=== PATIENT | male | born 1995 | race Caucasian/White ===

== ENCOUNTER → 2017-07-06 | Outpatient (CLI) | payer OTHER ==
[~2017-07-06] MED LIST: ADVIL CONGESTION; ALAVERT10 M1; ALBUTEROL0.09 MG/A2 IH; ATARAX,VISTARIL50 MG PO; BACTROBAN OINT22 GM PO; CIPRODEX 0.3%-7.5 ML OT; CLARITIN10 MG PO; CLINDAMYCIN150 MG PO; ELIMITE 5%60 GM T; FLONASE0.05 MG/AC NS; KEFLEX500 MG PO; MOTRIN800 MG PO; PREDNISONE20 M1 PO; ZITHROMAX Z PA250 MG PO; ZITHROMAX250 MG
== END | disposition home or self-care (01) ==
LOC: RAD 16:41
DX: M54.5 Low back pain (principal)

== ENCOUNTER 2018-06-25 15:04 | Emergency (ER) | payer OTHER ==
[~2018-06-25] VITALS: Ht 190.5 cm; Wt 126.1 kg
[2018-06-25 15:39] LABS: BASO % 0.2 % (0.0-1.0); EOS # 0.1 10*3/uL (0.0-0.4); HEMATOCRIT 43.1 % (42.0-52.0); HEMOGLOBIN 14.3 g/dl (14.0-18.0); LYMPH # 1.5 10*3/uL (1.3-4.4); MEAN CELL VOLUME 82.9 fl (80.0-94.0); MEAN CORPUSCULAR HGB 27.5 pg (27.0-31.0); MEAN CORPUSCULAR HGB CONC 33.2 g/dl (33.0-37.0); MEAN PLATELET VOLUME 9.3 fl (9.6-12.3); MONO # 0.7 10*3/uL (0.1-1.0); MONO % 7.2 % (3.0-9.0); NEUT # 6.7 10*3/uL (2.3-7.9); NEUT % 74.4 % (47.0-73.0); PLATELET COUNT AUTOMATED 226 10*3/uL (130-400); RED CELL DISTRI WIDTH 11.8 % (0-14.5); WHITE BLOOD COUNT 9.1 10*3/uL (4.8-10.8)
[2018-06-25 15:55] LABS: ALBUMIN 4.1 gm/dl (3.1-4.5); ALKALINE PHOSPHATASE 106 U/L (45-117); BUN 13 mg/dl (7-24); CHLORIDE 101 mmol/L (98-107); CREATININE 0.72 mg/dL (0.70-1.30); LIPASE 120 U/L (73-393); POTASSIUM 4.3 mmol/L (3.5-5.1); SGOT/AST 23 IU/L (3-35); SGPT/ALT 42 U/L (12-78); SODIUM 137 mmol/L (136-145); TOTAL PROTEIN 8.4 gm/dL (6.4-8.2)
[2018-06-25] MEDS ORDERED: ZOFRAN4 MG PO (16:10)
== END 2018-06-25 17:28 ==
LOC: ED 15:04
PROVIDERS: Nurse Practitioner Family
DX: R10.13 Epigastric pain (principal); R11.0 Nausea; R10.11 Right upper quadrant pain; R03.0 Elevated blood-pressure reading, without diagnosis of hypertension; Z88.1 Allergy status to other antibiotic agents; Z88.0 Allergy status to penicillin

== ENCOUNTER → 2020-06-25 | Outpatient (CLI) | payer OTHER ==
[~2020-06-25] MED LIST changes: +ZOFRAN4 MG PO
[2020-06-25 15:44] LABS: ALBUMIN 4.1 gm/dl (3.1-4.5); ALKALINE PHOSPHATASE 92 U/L (45-117); BUN 13 mg/dl (7-24); CHLORIDE 105 mmol/L (98-107); CREATININE 0.83 mg/dL (0.70-1.30); POTASSIUM 3.6 mmol/L (3.5-5.1); SGOT/AST 16 IU/L (3-35); SGPT/ALT 39 U/L (12-78); SODIUM 139 mmol/L (136-145); TOTAL PROTEIN 8.1 gm/dL (6.4-8.2)
[2020-06-25 15:52] LABS: BILIRUBIN NEGATIVE; BLOOD NEGATIVE (NEGATIVE); CLARITY CLEAR (CLEAR); COLOR YELLOW (YELLOW); GLUCOSE NEGATIVE; KETONE NEGATIVE; LEUKO ESTERASE NEGATIVE (NEGATIVE); NITRITE NEGATIVE (NEGATIVE); PH 6.5 (4.5-8.0); SPECIFIC GRAVITY 1.015 (1.001-1.030); UROBILINOGEN 0.2 E.U./dl (0.0-1.0)
[2020-06-25 15:54] LABS: BACTERIA TRACE; EPITHELIAL CELLS 0-2; MUCOUS TRACE; RBC 0-2 rbc/hpf (0-2); WBC 0-2 wbc/hpf (0-5)
== END | disposition home or self-care (01) ==
LOC: LAB 14:37
PROVIDERS: ATTEND Nurse Practitioner
DX: R30.0 Dysuria (principal)

== ENCOUNTER 2021-03-19 18:44 | Emergency (ER) | payer SELFPAY ==
[~2021-03-19] VITALS: Ht 193 cm; Wt 131.5 kg
== END 2021-03-19 19:46 | disposition home or self-care (01) ==
LOC: ED 18:44
DX: R21 Rash and other nonspecific skin eruption (principal); T50.B95A Adverse effect of other viral vaccines, initial encounter; Z88.0 Allergy status to penicillin; Z88.8 Allergy status to other drugs, medicaments and biological substances; Y92.89 Other specified places as the place of occurrence of the external cause

== ENCOUNTER 2021-05-05 18:51 | Emergency (ER) | payer OTHER ==
[~2021-05-05] VITALS: Wt 129.3 kg
[2021-05-05] MEDS ORDERED: METHOCARBAMOL750 M1 PO (19:58)
[2021-05-05] MEDS ORDERED: NAPROSYN500 MG PO (19:58)
== END 2021-05-05 20:25 | disposition home or self-care (01) ==
LOC: ED 18:51
DX: S39.011A Strain of muscle, fascia and tendon of abdomen, initial encounter (principal); M25.552 Pain in left hip; Z88.0 Allergy status to penicillin; Z88.1 Allergy status to other antibiotic agents; Z79.2 Long term (current) use of antibiotics; Z79.899 Other long term (current) drug therapy; W18.43XA Slipping, tripping and stumbling without falling due to stepping from one level to another, initial encounter; Y93.01 Activity, walking, marching and hiking; Y92.89 Other specified places as the place of occurrence of the external cause; Y99.0 Civilian activity done for income or pay

== ENCOUNTER → 2021-08-17 | Outpatient (CLI) | payer OTHER ==
[~2021-08-17] MED LIST changes: +METHOCARBAMOL750 M1 PO; +NAPROSYN500 MG PO
== END | disposition home or self-care (01) ==
LOC: RAD 12:37
PROVIDERS: ATTEND Family Medicine
DX: M87.852 Other osteonecrosis, left femur (principal); M25.551 Pain in right hip; M25.552 Pain in left hip

== ENCOUNTER 2021-11-02 20:08 | Emergency (ER) | payer OTHER ==
[~2021-11-02] VITALS: Ht 193 cm; Wt 136.1 kg
[2021-11-02] MEDS ORDERED: BENZONATATE200 MG PO (22:02)
== END 2021-11-02 22:05 | disposition home or self-care (01) ==
LOC: ED 20:08
DX: J40 Bronchitis, not specified as acute or chronic (principal); Z20.822 Contact with and (suspected) exposure to COVID-19; Z88.0 Allergy status to penicillin; Z88.1 Allergy status to other antibiotic agents

== ENCOUNTER 2022-01-12 07:08 | Emergency (ER) | payer OTHER ==
[~2022-01-12] VITALS: Wt 141.5 kg
[~2022-01-12 07:08] MED LIST changes: +BENZONATATE200 MG PO
[2022-01-12] MEDS ORDERED: VIBRA-TAB100 MG PO (07:34)
== END 2022-01-12 07:33 | disposition home or self-care (01) ==
LOC: ED 07:08
DX: J32.0 Chronic maxillary sinusitis (principal); Z88.0 Allergy status to penicillin; Z88.1 Allergy status to other antibiotic agents; Z79.899 Other long term (current) drug therapy

== ENCOUNTER 2022-03-24 12:00 | Emergency (ER) | payer OTHER ==
[~2022-03-24] VITALS: Ht 193 cm; Wt 142.9 kg
[~2022-03-24 12:00] MED LIST changes: +VIBRA-TAB100 MG PO
[2022-03-24 12:45] LABS: BASO % 0.6 % (0.0-1.0); EOS % 0.3 % (1.0-4.0); HEMATOCRIT 44.1 % (42.0-52.0); LYMPH % 28.4 % (27.0-41.0); MEAN CELL VOLUME 82.3 fl (80.0-94.0); MEAN CORPUSCULAR HGB 27.8 pg (27.0-31.0); MEAN CORPUSCULAR HGB CONC 33.8 g/dl (33.0-37.0); MEAN PLATELET VOLUME 9.4 fl (9.6-12.3); MONO # 0.4 10*3/uL (0.1-1.0); NEUT # 2.1 10*3/uL (2.3-7.9); NEUT % 60.7 % (47.0-73.0); PLATELET COUNT AUTOMATED 184 10*3/uL (130-400); RED BLOOD COUNT 5.36 10*6/uL (4.50-5.90); WHITE BLOOD COUNT 3.5 10*3/uL (4.8-10.8)
[2022-03-24 13:00] LABS: ALKALINE PHOSPHATASE 89 U/L (45-117); BUN 11 mg/dl (7-24); CHLORIDE 106 mmol/L (98-107); CREATININE 0.78 mg/dL (0.70-1.30); SGOT/AST 38 IU/L (3-35); SGPT/ALT 58 U/L (12-78); SODIUM 134 mmol/L (136-145); TOTAL PROTEIN 8.1 gm/dL (6.4-8.2)
[2022-03-24 13:01] LABS: BILIRUBIN Negative (Negative); BLOOD Negative (Negative); CLARITY Clear (Clear); COLOR Yellow (Yellow); GLUCOSE Negative (Negative); KETONE Negative (Negative); LEUKO ESTERASE Trace (Negative); NITRITE Negative (Negative); PH 7.5 (4.5-8.0); SPECIFIC GRAVITY 1.025 (1.001-1.030)
[2022-03-24 13:21] LABS: BACTERIA TRACE; EPITHELIAL CELLS 21-30
== END 2022-03-24 16:35 | disposition home or self-care (01) ==
LOC: ED 12:00
PROVIDERS: Emergency Medicine
DX: U07.1 COVID-19 (principal); G43.909 Migraine, unspecified, not intractable, without status migrainosus; M79.10 Myalgia, unspecified site; Z88.0 Allergy status to penicillin; Z88.1 Allergy status to other antibiotic agents

== ENCOUNTER 2022-04-12 06:44 | Emergency (ER) | payer OTHER ==
[~2022-04-12] VITALS: Ht 193 cm; Wt 142.9 kg
[2022-04-12] MEDS ORDERED: VIBRAMYCIN100 MG PO (07:42)
== END 2022-04-12 07:54 | disposition home or self-care (01) ==
LOC: ED 06:44
DX: A69.20 Lyme disease, unspecified (principal); F17.200 Nicotine dependence, unspecified, uncomplicated; G43.909 Migraine, unspecified, not intractable, without status migrainosus; Z88.0 Allergy status to penicillin; Z88.1 Allergy status to other antibiotic agents

== ENCOUNTER 2022-08-10 03:41 | Emergency (ER) | payer OTHER ==
[~2022-08-10] VITALS: Ht 193 cm; Wt 142.9 kg
[~2022-08-10 03:41] MED LIST changes: +VIBRAMYCIN100 MG PO
[2022-08-10] MEDS ORDERED: ONDANSETRON4 MG SL (05:27)
== END 2022-08-10 05:37 | disposition home or self-care (01) ==
LOC: ED 03:41
DX: K52.9 Noninfective gastroenteritis and colitis, unspecified (principal); R11.2 Nausea with vomiting, unspecified; Z88.0 Allergy status to penicillin; Z88.1 Allergy status to other antibiotic agents

== ENCOUNTER 2023-09-16 17:30 | Emergency (ER) | payer SELFPAY ==
[~2023-09-16] VITALS: Ht 195.5 cm; Wt 172.4 kg
[~2023-09-16 17:30] MED LIST changes: +ONDANSETRON4 MG SL
[2023-09-16] MEDS ORDERED: AVPAK AZITHROM250 M1 PO (18:43)
== END 2023-09-16 18:46 | disposition home or self-care (01) ==
LOC: ED 17:30
DX: J32.9 Chronic sinusitis, unspecified (principal); Z88.0 Allergy status to penicillin; Z88.1 Allergy status to other antibiotic agents; Z88.8 Allergy status to other drugs, medicaments and biological substances; Z20.822 Contact with and (suspected) exposure to COVID-19

== ENCOUNTER 2024-05-24 09:22 | Emergency (ER) | payer OTHER ==
[~2024-05-24] VITALS: Ht 195.5 cm; Wt 140.2 kg
[~2024-05-24 09:22] MED LIST changes: +AVPAK AZITHROM250 M1 PO
[2024-05-24] MEDS ORDERED: ACETAMINOPHEN 325 MG TAB PO ONE (09:50)
[2024-05-24] MEDS ORDERED: IBUPROFEN 400 MG TAB PO ONE (09:50)
[2024-05-24] MEDS ORDERED: TYLENOL EXTRA500 MG PO (10:27)
[2024-05-24] MEDS ORDERED: Motrin,Rufen400 MG PO (10:27)
== END 2024-05-24 10:36 | disposition home or self-care (01) ==
LOC: ED 09:22
DX: S20.412A Abrasion of left back wall of thorax, initial encounter (principal); S50.312A Abrasion of left elbow, initial encounter; S39.93XA Unspecified injury of pelvis, initial encounter; G43.901 Migraine, unspecified, not intractable, with status migrainosus; Z88.0 Allergy status to penicillin; Z88.1 Allergy status to other antibiotic agents; Z88.8 Allergy status to other drugs, medicaments and biological substances; W17.89XA Other fall from one level to another, initial encounter; Y93.89 Activity, other specified; Y92.89 Other specified places as the place of occurrence of the external cause; Y99.0 Civilian activity done for income or pay

== ENCOUNTER 2024-07-13 14:13 | Emergency (ER) | payer OTHER ==
[~2024-07-13] VITALS: Ht 193 cm; Wt 140.6 kg
[~2024-07-13 14:13] MED LIST changes: +Motrin,Rufen400 MG PO; +TYLENOL EXTRA500 MG PO
== END 2024-07-13 15:00 | disposition home or self-care (01) ==
LOC: ED 14:13
DX: S61.012A Laceration without foreign body of left thumb without damage to nail, initial encounter (principal); Z88.0 Allergy status to penicillin; Z88.1 Allergy status to other antibiotic agents; Z88.8 Allergy status to other drugs, medicaments and biological substances; W26.0XXA Contact with knife, initial encounter; Y93.89 Activity, other specified; Y92.009 Unspecified place in unspecified non-institutional (private) residence as the place of occurrence of the external cause; Y99.8 Other external cause status

== ENCOUNTER 2024-09-24 11:06 | Emergency (ER) | payer OTHER ==
[~2024-09-24] VITALS: Ht 195.5 cm; Wt 141.1 kg
[2024-09-24 11:47] LABS: BASO % 0.5 % (0.0-1.0); EOS # 0.2 10*3/uL (0.0-0.4); EOS % 2.5 % (1.0-4.0); HEMATOCRIT 42.5 % (42.0-52.0); MEAN CELL VOLUME 82.8 fl (80.0-94.0); MEAN CORPUSCULAR HGB 28.3 pg (27.0-31.0); MEAN CORPUSCULAR HGB CONC 34.1 g/dl (33.0-37.0); MEAN PLATELET VOLUME 9.3 fl (9.6-12.3); MONO # 0.4 10*3/uL (0.1-1.0); MONO % 5.9 % (3.0-9.0); NEUT # 3.6 10*3/uL (2.3-7.9); NEUT % 48.6 % (47.0-73.0); PLATELET COUNT AUTOMATED 272 10*3/uL (130-400); RED BLOOD COUNT 5.13 10*6/uL (4.50-5.90); RED CELL DISTRI WIDTH 11.7 % (0-14.5); WHITE BLOOD COUNT 7.5 10*3/uL (4.8-10.8)
[2024-09-24 11:55] LABS: ACT PARTIAL THROMBO TIME 31.3 SECONDS (20.0-32.1)
[2024-09-24 12:05] LABS: BUN 12 mg/dl (9-23); CHLORIDE 102 mmol/L (98-107)
[2024-09-24] MEDS ORDERED: VISTARIL25 MG PO (14:25)
== END 2024-09-24 14:39 | disposition home or self-care (01) ==
LOC: ED 11:06
PROVIDERS: Internal Medicine
DX: R07.89 Other chest pain (principal); F41.9 Anxiety disorder, unspecified; R06.02 Shortness of breath; Z88.0 Allergy status to penicillin; Z88.1 Allergy status to other antibiotic agents